=== PATIENT | male | born 1945 | race Caucasian/White ===

== ENCOUNTER 2016-07-13 02:40 | Inpatient (IN) | payer OTHER, MEDICARE ==
[~2016-07-13] VITALS: Ht 162.6 cm; Wt 66.7 kg
[~2016-07-13 02:40] MED LIST: CLONAZEPAM2 M2 PO
--- NOTE | 2016-07-13 09:46 | Admission Core Measures ---
Admission Meds I reviewed the following Meds: Current Medications Sig/Dang Start time Last Medication Dose Stop Time Status Admin Acetaminophen 975 MG ONCE 07/13 0000 NR (Tylenol) 07/13 2358 Cefazolin Sodium 2,000 MG ONCE 07/13 NR (Kefzol-Ancef Inj) 07/13 2358 Clonazepam 2 MG BID 07/13 1000 AC (Klonopin 1MG Tab) 07/20 958 Oxycodone HCl 10 MG ONCE 07/13 0000 NR (Roxicodone) 07/13 2358 Acute Coronary Syndrome Inclusion Criteria ACS Diagnosis No Inpatient Core Measures LDL Reminder: If No, please order W/I first 24hr of stay Congestive Heart Failure Inclusion Criteria CHF Diagnosis No Cerebrovascular accident Inclusion Criteria CVA/TIA Diagnosis No Inpatient Core Measures Bedside Swallow Eval Reminder: If BSE failed, place ST order Antithrombotic Reminder: Order Antithrombotic Medication by end of day 2 Antithrombotic Reminder: Document Reason Antithrombotic Not ordered by end of day 2 AFIB/Flutter Reminder: If Present, add to problem list AFIB/Flutter Reminder: Order Anticoag Medication for pts with AFIB/Flutter Atherosclerosis Reminder: If Present, add to problem list LDL Reminder: If No, please order W/I first 24hr of stay PT Order Reminder: If No, please order Venous thromboembolism Inpatient Core Measures VTE Risk Factors: Age > 40, Surgery VTE Prophylaxis Ordered Inpt Mech & Pharm No Mech VTE prophylaxis d/t No contraindications No VTE Pharm Prophylaxis d/t No contraindications Inclusion Criteria - Per Current guidelines, there needs to be overlap - treatment for the first 5 days of Warfarin therapy. - Parenteral Anticoagulation (IV or SC) needs to be - given along with Warfarin therapy. VTE Diagnosis No VTE Type NONE VTE Confirmed by (Test) NONE Problem List As ranked by this Provider includes Assessment & Plan 1. Unilateral primary osteoarthritis, right hip HOME MEDS Home Med List Clonazepam 2 MG TABLET 1 TAB PO BID ANXIETY (Reported)
[2016-07-13] MEDS ORDERED: ASPIRIN EC325 M2 PO (09:49)
[2016-07-13] MEDS ORDERED: MS CONTIN30 M1 PO (09:49)
[2016-07-13] MEDS ORDERED: COLACE100 M1 PO (09:49)
[2016-07-13] MEDS ORDERED: DILAUDID4 M1 PO (09:49)
[2016-07-13] MEDS ORDERED: MIRALAX17 G1 PO (09:49)
--- NOTE | 2016-07-13 09:52 | Patient Discharge Instructions ---
Discharge Instructions General Discharge Information You were seen/treated for: Right hip pain You had these procedures: Right total hip replacement Watch for these problems: Increasing pain, redness, warmth, swelling. Drainage of any type from incision. Inability to bear weight on right leg. Fever greater than 101.5. Do not soak the wound: Yes No bath, but you may shower: Yes Other wound care: Daily dry dressing changes Special Instructions: Incision: Dry dressing. May shower. No baths. No ointments of any kind. Ice as needed. Bowel regimen: Colace and or MiraLAX Weight-bearing as tolerated Follow-up with Dr. Todd in 6 weeks. Call office for fevers greater than 101.5, excessive drainage or inability to bear weight on operative extremity. Visiting nurse will change dressing. Diet Continue normal diet: Yes Recommended Diet: Regular Additional DIET Information: Advance as tolerated Activity Full Activity/No Limits: No Activity Self Limited: Yes Pounds, do NOT lift more than: 10 Additional ACTIVITY Info: Weight-bear as tolerated Acute Coronary Syndrome Inclusion Criteria At DC or during hospital stay patient has or had the following: ACS DIAGNOSIS No Discharge Core Measures Meds if any: Prescribed or Continued at Discharge Meds if any: NOT Prescribed or Continued at Discharge Congestive Heart Failure Inclusion Criteria At DC or during hospital stay patient has or had the following: CHF DIAGNOSIS No Discharge Core Measures Meds if any: Prescribed or Continued at Discharge Meds if any: NOT Prescribed or Continued at Discharge Cerebrovascular accident Inclusion Criteria At DC or during hospital stay patient has or had the following: CVA/TIA Diagnosis No Discharge Core Measures Meds if any: Prescribed or Continued at Discharge Meds if any: NOT Prescribed or Continued at Discharge Venous thromboembolism Inclusion Criteria VTE Diagnosis No VTE Type NONE VTE Confirmed by (Test) NONE Discharge Core Measures - Per Current guidelines, there needs to be overlap - treatment for the first 5 days of Warfarin therapy. - If discharged on Warfarin prior to 5 days of - overlap therapy, the patient will need to be - assessed for post discharge needs including - *Post discharge parental anticoagulation - *Warfarin and/or parental anticoagulation education - *Follow up date to check INR post discharge At least 5 days overlap therapy as Inpatient No Meds if any: Prescribed or Continued at Discharge Note: Overlap Therapy is Warfarin and Anticoagulant Meds if any: NOT Prescribed or Continued at Discharge
--- NOTE | 2016-07-13 09:54 | Surgical Discharge Summary ---
Visit Information Visit Dates Admission Date: 07/13/16 Discharge Date: 07/14/2016 History of Present Illness Chief Complaint: Right hip pain Surgical History Pertinent Surgical History: non-contributory Review of Systems: See H&P Hospital Course Course Attending Physician: KORTNEY DARLING MD Primary Care Physician: SOPHIE SANDOVAL,[facility] Course: Patient was admitted to the hospital on 07/13/2016 for an elective right total hip replacement. He tolerated the procedure well. He was transferred to a general surgical floor. His diet was advanced and tolerated. His vital signs were stable and within normal limits. He voided spontaneously. His pain was well controlled. He was evaluated and treated by physical therapy. He was deemed appropriate for discharge. Allergies: Coded Allergies: No Known Allergies (07/12/16) PER PRE-OP ORDER SHEET FROM 07/12/16. - 07/12/16 0919 Disposition Summary Disposition Principal Diagnosis: Right hip unilateral primary osteoarthritis Additional Diagnosis: None Discharge Disposition: home health services Discharge Instructions General Discharge Information Code Status: Full Code Patient's Diet: Regular, advance as tolerated Patient's Activity: Weight-bear as tolerated Follow-Up Instructions/Appts: Incision: Dry dressing. May shower. No baths. No ointments of any kind. Ice as needed. Bowel regimen: Colace and or MiraLAX Weight-bearing as tolerated Follow-up with Dr. Darling in 6 weeks. Call office for fevers greater than 101.5, excessive drainage or inability to bear weight on operative extremity. Visiting nurse will change dressing. Medications at Discharge Discharge Medications: Continue taking these medications: Clonazepam (Clonazepam) 2 MG TABLET 1 Tablet ORAL TWICE DAILY Start taking the following new medications: Hydromorphone HCl (Dilaudid) 4 MG TABLET 1-2 Tablet ORAL Q4-6H as needed for PAIN Qty = 36 No Refills Morphine Sulfate (Ms Contin) 30 MG TABLET.ER 1 Tablet ORAL TWICE DAILY Qty = 6 No Refills Aspirin (Ecotrin*) 325 MG TABLET.DR 1 Tablet ORAL TWICE DAILY Qty = 60 No Refills Docusate Sodium (Colace) 100 MG CAPSULE 1 Capsule ORAL TWICE DAILY Qty = 14 No Refills Instructions: DISCONTINUE USE IF YOU DEVELOP LOOSE STOOL OR DIARRHEA Polyethylene Glycol 3350 (Miralax) 17 GRAM POWD.PACK 1 Packet ORAL DAILY Qty = 7 No Refills Instructions: dissolve in water, DISCONTINUE USE IF YOU DEVELOP LOOSE STOOL OR DIARRHEA
--- NOTE | 2016-07-13 12:02 | RADIOLOGY REPORT ---
EXAMINATION: XR HIP, RIGHT CLINICAL INFORMATION: Postoperative evaluation. COMPARISON: No relevant prior imaging is available. TECHNIQUE: Two views of the right hip. FINDINGS: There are recent postoperative changes related to a right total hip arthroplasty. There is no evidence of periprosthetic fracture. No dislocation of the hardware. Expected gas is visualized within the subcutaneous tissues. IMPRESSION: There are expected postoperative changes following a total right hip arthroplasty. No dislocation.
[2016-07-13 13:07] VITALS: BP 128/72
--- NOTE | 2016-07-13 13:35 | Operative Report ---
Operative/Inv Procedure Report Surgery Date: 07/13/16 Name of Procedure: Right total hip replacement Pre-Operative Diagnosis: Primary right hip DJD Post-Operative Diagnosis: Same Estimated Blood Loss: 300 Surgeon/Rim Roller Operator: PHONG SANDOVAL,KORTNEY Aucña Anesthesia: block Operative/Procedure Note Note: Description of Procedure: The patient was taken to the operating room and positively identified. After induction of spinal anesthesia and administration of appropriate pre-operative antibiotics, the patient was positioned supine on the operating room table and all bony prominences were well padded. After performing a surgical timeout, the right lower extremity was prepped and draped in the usual sterile fashion. A direct anterior approach was made to the right hip. The incision was carried sharply through superficial soft tissues to the level of the fascia. Meticulous hemostasis was maintained with Bovie electocautery. The fascia over the tensor fascia lindsey muscle was opened sharply and the interval between the TFL and the sartorius was entered bluntly taking care to stay lateral to the lateral femoral cutaneous nerve. Retractors were placed around the femoral neck and the pericapsular fat was identified. The ascending branches of the lateral femoral circumflex vessels were identified and carefully coagulated. The pericapsular fat and anterior capsule were then resected. A napkin ring osteotomy was performed and the femoral head was removed without difficulty. Attention was then turned to the acetabulum. After appropriate placement of retractors, the acetabulum was exposed. Soft tissue was cleaned from the acetabular margin and notch. Overhanging osteophytes were removed and the teardrop was exposed. The acetabulum was then sequentially reamed to accept a 56 mm [place] Tritanium hemispherical solid back shell. This was impacted into place in the appropriate position and fitted with a 36 mm Trident X3 zero degree polyethylene insert. Attention was then turned to the femur. After performing the appropriate ligament releases, the proximal femur was exposed. It was then sequentially broached to accept a size 4 [place] accolade 2 stem. This was trialed for leg length and stability. The trial component was removed and the final component was impacted into place. The trunnion was carefully cleaned and fit with a 36 mm,+2.5 Biolox delta ceramic femoral head. The hip was reduced and put through a full range of motion and found to be stable. The articular space was then irrigated with sterile saline. The periarticular soft tissues were infilitrated with Marcaine. The fascial layer was closed with interrupted #1 vicryl suture and the skin was re-approximated with interrupted 2 -0 vicryl. The skin was closed with a running 3-0 V-Lock suture. Steri-strips and a sterile dressing were applied. The patient was awakened and taken to the recovery room in satisfactory condition.
[2016-07-13 15:50] VITALS: BP 120/80
--- NOTE | 2016-07-13 16:01 | PN- Orthopedic ---
Subjective Subjective: Patient feeling some post op discomfort to operative hip. Has ambulated. Denies chest pain, shortness of breath and difficulty breathing. Denies nausea and vomitting. Has voided. Has tolerated diet Objective Vital Signs and I&Os Vital Signs Date Time Temp Pulse Resp B/P Pulse O2 O2 Flow FiO2 Ox Delivery Rate 07/13 1550 96.4 96 19 120/80 100 Room Air 07/13 1307 97.8 58 18 128/72 Intake & Output 07/13 1600 07/13 0800 07/13 0000 07/12 1600 07/12 0800 07/12 0000 Intake Total Output Total 400 Balance -400 Output, Urine 400 Patient 150 lb Weight Physical Exam: General: Alert and oriented x3, no acute distress Cardiac: RRR, s1s2 Pulmonary: C T A bilaterally Abdomen: non-tender, non-distended Extremities: Moves all extremities, distal sensation intact. Motor 5/5 in plantar and dorsi flexion. Skin warm and well perfused. DP pulses palpable. Bilateral calves soft and non-tender Surgical site: Right hip. Dressing dry and intact. Thigh compartment soft Assessment/Plan Assessment/Plan This is a 70 year old male, POD 0, s/p right thr -IV fluids D5 half NS at 75 -Ancef 2 grams for 2 additional doses for abx ppx -DVT ppx asa 325 bid, alps -Colace/Miralax for bowel regimen -Regular diet as tolerated -IV morphine/po dilaudid for pain -OOB with pt, wbat -Plan for dc to home tomorrow -Will d/w dr. Todd Core Measures/Miscellaneous Venous Thromboembolism VTE Risk Factors: Age > 40 VTE Contraindications: No Contraindications VTE Prophylaxis Ordered Inpt: Mech & Pharm VTE Diagnosis: No VTE Type: NONE VTE Confirmed by (Test): NONE Beta Jaiden Is Beta Jaiden a Home Med? No Antibiotics Is Patient on Antibiotics? Yes If Yes: prophylaxis
[2016-07-13 17:45] VITALS: BP 132/80
[2016-07-13 19:30] VITALS: BP 124/80
[2016-07-13 23:51] VITALS: BP 110/58
[2016-07-14 03:23] VITALS: BP 110/60
[2016-07-14 06:40] VITALS: BP 110/58
--- NOTE | 2016-07-14 07:55 | PN- Orthopedic ---
Subjective Subjective: NAEO. Patient without new complaints of. Continues to have 8 out of 10 right hip pain that he states started immediately postop. Pain tolerable at this moment after receiving IV Dilaudid. He has not been receiving IV Toradol though it is ordered. Tolerating diet without nausea vomiting. Has been out of bed and ambulated to bathroom. Voiding spontaneously. Denies chest pain or shortness of breath. Objective Vital Signs and I&Os Vital Signs Date Time Temp Pulse Resp B/P Pulse O2 O2 Flow FiO2 Ox Delivery Rate 07/14 0749 99.0 07/14 0640 100.8 80 20 110/58 94 Room Air 07/14 0323 98.6 92 20 110/60 94 Room Air 07/13 2351 100.8 80 20 110/58 94 Room Air 07/13 1930 98.6 109 20 124/80 97 Room Air 07/13 1745 98.2 103 20 132/80 94 Room Air 07/13 1550 96.4 96 19 120/80 100 Room Air 07/13 1307 97.8 58 18 128/72 Intake & Output 07/14 1600 07/14 0800 07/14 0000 07/13 1600 07/13 0800 07/13 0000 Intake Total 175 350 Output Total 100 400 Balance 175 250 -400 Intake, IV 75 150 Intake, Oral 100 200 Output, Urine 100 400 Patient 147 lb Weight Physical Exam: General: NAD, comfortable, A&Ox3 Chest: CTAB. Heart S1S2 normal. Abdomen: soft, nontender, nondistended. Ext: Right hip dressing clean dry and intact. Right thigh softly swollen. No calve swelling/TTP, neurovascularly intact bilateral lower extremities Current Medications: Current Medications Sig/Dang Start time Last Medication Dose Route Stop Time Status Admin Acetaminophen 650 MG Q4P PRN 07/13 1300 AC PO Acetaminophen 975 MG ONCE 07/13 0000 DC PO 07/13 2359 Aspirin 325 MG BID 07/13 2200 AC 07/13 PO 2212 Aspirin 325 MG BID 07/13 1000 DC PO Cefazolin Sodium 2 GM IQ8 07/13 1600 DC 07/13 N/A 1 UNIT IV 07/14 0029 2344 Cefazolin Sodium 2,000 MG ONCE 07/13 0000 DC IV 07/13 2359 Clonazepam 2 MG BID 07/13 2200 AC 07/13 PO 07/20 0959 2213 Clonazepam 2 MG BID 07/13 1000 DC PO 07/20 0959 Dextrose/Sodium 1,000 ML .[id number] 07/13 1300 DC Chloride IV Docusate Sodium 100 MG BID 07/13 2200 AC 07/13 PO 2213 Docusate Sodium 100 MG BID 07/13 1000 DC PO Fentanyl Citrate 100 MCG .STK-MED ONE 07/13 0816 DC IM 07/13 0817 Hydromorphone HCl 2 MG Q4P PRN 07/13 1300 AC PO Hydromorphone HCl 4 MG Q4P PRN 07/13 1300 AC 07/14 PO 0746 Hydromorphone HCl 2 MG .STK-MED ONE 07/13 1108 DC IM 07/13 1109 Ketorolac 15 MG Q8P PRN 07/13 1300 AC 07/14 Tromethamine IV 07/16 1251 0756 Midazolam HCl 2 MG .STK-MED ONE 07/13 0853 DC IM 07/13 0854 Midazolam HCl 2 MG .STK-MED ONE 07/13 0817 DC IM 07/13 0818 Morphine Sulfate 2 MG Q2P PRN 07/13 1300 AC IV Omeprazole 40 MG DAILY AC 07/14 0700 DC PO Omeprazole 40 MG DAILY AC 07/14 0700 AC 07/14 PO 0554 Ondansetron HCl 4 MG Q6P PRN 07/13 1300 AC IV Oxycodone HCl 10 MG ONCE 07/13 0000 DC PO 07/13 2359 Polyethylene Glycol 17 GM DAILY 07/14 1000 AC PO Polyethylene Glycol 17 GM DAILY 07/13 1000 DC PO Promethazine HCl 12.5 MG Q6P PRN 07/13 1300 AC IV 07/20 0944 Tranexamic Acid 2,000 MG .STK-MED ONE 07/13 0816 DC IV 07/13 0817 Results Last 48 Hours of Labs: Laboratory Tests 07/14 0700 Chemistry Sodium Pending Potassium Pending Chloride Pending Carbon Dioxide Pending Anion Gap Pending BUN Pending Creatinine Pending BUN/Creatinine Ratio Pending Hematology CBC w Diff Pending WBC Pending RBC Pending Hgb Pending Hct Pending MCV Pending MCH Pending RDW Pending Plt Count Pending MPV Pending PUBS MCHC Pending Assessment/Plan Assessment/Plan 70yo M POD#1 s/p right AHSAN. AVSS. Continues to have pain but patient stable. - Pain control - PRN zofran - ASA 325mg PO BID - I/O's - ALPS - OOB and ambulate with PT, WBAT - Leave dressing in place - DC planning - will d/w attending Core Measures/Miscellaneous Venous Thromboembolism VTE Risk Factors: Age > 40 VTE Contraindications: No Contraindications VTE Prophylaxis Ordered Inpt: Mech & Pharm VTE Diagnosis: No VTE Type: NONE VTE Confirmed by (Test): NONE Beta Jaiden Is Beta Jaiden a Home Med? No Antibiotics Is Patient on Antibiotics? No If Yes: prophylaxis
[2016-07-14 08:50] LABS: ABSOLUTE BASOPHIL COUNT 0 /CUMM (0.0-0.2); ABSOLUTE EOSINOPHIL COUNT 0 /CUMM (0.0-0.7); ABSOLUTE GRANULOCYTE CT 4.1 /CUMM (1.4-6.5); ABSOLUTE LYMPH COUNT 1.6 /CUMM (1.2-3.4); BASOPHIL % 0.5 % (0.0-2.0); EOSINOPHIL % 0.5 % (0-5); GRANULOCYTE % 60.1 % (42.2-75.2); HEMATOCRIT 33.4 % (42-52); MEAN CORPUSCULAR HGB 31.6 PG (27.0-31.0); MEAN CORPUSCULAR HGB CONC 34.8 G/DL (33.0-37.0); MEAN CORPUSCULAR VOLUME 90.9 FL (80.0-94.0); MEAN PLATELET VOLUME 8.1 FL (7.4-10.4); PLATELET COUNT 155 /CUMM (130-400); RBC DISTRIBUTION WIDTH 12.9 % (11.5-14.5); RED BLOOD CELL CT 3.68 /CUMM (4.70-6.10); WHITE BLOOD CELL COUNT 6.8 /CUMM (4.8-10.8)
== END 2016-07-14 11:15 | disposition home health service (06) | DRG 470 ==
LOC: ENRESERVTM → ENRESERVDT → SDA 02:40 → ENPENDDIS 02:40 → 2NA 12:33
PROVIDERS: Nurse Practitioner; ADMIT Orthopaedic Surgery
PROC: 0SR904A Replacement of Right Hip Joint with Ceramic on Polyethylene Synthetic Substitute, Uncemented, Open Approach (ICD-10-PCS; principal; 2016-07-13)
DX: M16.11 Unilateral primary osteoarthritis, right hip (principal); N40.0 Benign prostatic hyperplasia without lower urinary tract symptoms
CPT/HCPCS: 2NAP; 73502-RT; 82436; 88304; 97116-GO; 97161-GP; 97530-GO; J0690; J0735; J2405; J2550; J7042